=== PATIENT | female | born 1990 | race Caucasian/White ===

== ENCOUNTER 2022-11-07 14:43 | Emergency (ER) | payer OTHER, SELFPAY ==
[2022-11-07 14:54] VITALS: BP 106/72; PULSE 116; RESP 14; TEMP 37.2; O2SAT 97
--- NOTE | 2022-11-07 15:08 | ED.SKABFB ---
HPI - Skin/Abscess/Foreign Bdy General Chief complaint: Wound/Laceration Stated complaint: remove stitches left heel Source: patient and RN notes reviewed History of Present Illness HPI narrative: 32-year-old female presents urgent care for suture removal. Patient states she had 5 sutures placed 10 days ago to her left Achilles tendon area. Patient denies any pain or drainage from the area. Patient has no other complaints or concerns. Some parts of this dictation were generated by voice recognition software and may contain typographical and/or grammatical inaccuracies. Related Data Home Medications Medication Instructions Recorded Confirmed No Home Medications 11/07/22 11/07/22 Allergies Allergy/AdvReac Type Severity Reaction Status Date / Time No Known Allergies Allergy Verified 11/07/22 15:06 Review of Systems Review of Systems: CONSTITUTIONAL: Denies fever, chills, or sweats. EYES: Denies visual changes, redness, or discharge. ENT: Denies otalgia and sore throat CARDIOVASCULAR: Denies chest pain, palpitations, or edema. RESPIRATORY: Denies cough or dyspnea. GASTROINTESTINAL: Denies abdominal pain, nausea, vomiting, or diarrhea. GENITOURINARY: Denies dysuria or hematuria. SKIN: Denies rash or itching. MUSCULOSKELETAL: Denies back pain, joint pain, or myalgia. NEUROLOGIC: Denies headache, numbness, or weakness. PMFSH Comments At the time of my signature, I reviewed and agree with the nursing past medical, surgical, social, and family history. There is no relevant family history pertinent to the patient complaint. Exam Narrative: GENERAL: This is a well-nourished, well-developed patient, in no apparent distress. HEAD: normocephalic, atraumatic. EYES: PERRL. Sclera clear/white. Vision is grossly intact. THROAT: Mucous membranes moist NECK: Neck supple, non-tender without lymphadenopathy, masses or thyromegaly. CARDIOVASCULAR: Regular rate RESPIRATORY: No respiratory distress SKIN: warm, intact with no suspicious lesions or rash, good texture and turgor. 5 sutures removed, wound is approximated with the exception of corner of wound. No drainage or erythema noted. NEURO: awake, alert, and oriented to person, place and time. There were no obvious focal neurologic abnormalities. EXTREMITIES: No clubbing, cyanosis, or edema. No joint tenderness, effusion, or edema noted. Course Course Level of Care: Express Care Visit Vital Signs Vital signs: Vital Signs Temperature 99.0 F 11/07/22 14:54 Pulse Rate 116 H 11/07/22 14:54 Respiratory Rate 14 11/07/22 14:54 Blood Pressure 106/72 11/07/22 14:54 Pulse Oximetry 97 11/07/22 14:54 Oxygen Delivery Room Air 11/07/22 14:54 Temperature 99.0 F 11/07/22 14:54 Pulse Rate 116 H 11/07/22 14:54 Respiratory Rate 14 11/07/22 14:54 Blood Pressure 106/72 11/07/22 14:54 Pulse Oximetry 97 11/07/22 14:54 Oxygen Delivery Room Air 11/07/22 14:54 Reviewed MDM - Skin/Abscess/Foreign Bdy MDM Narrative Medical decision making narrative: Monitor for any signs of infection and be seen by a medical provider if you notice any redness, drainage, or pain to the area. 5 sutures removed successfully without complications. Differential Diagnosis Differential diagnosis: Likely cellulitis and other (Suture removal, wound infection) Critical Care Time Critical Care Time Critical Care Time: No Discharge Plan Discharge Clinical Impression: Visit for suture removal Patient Disposition: Home, Self-Care Condition: Stable Instructions: Acute Wounds (ED) Additional Instructions: Monitor for any signs of infection and be seen by a medical provider if you notice any redness, drainage, or pain to the area. Prescriptions: No Action No Home Medications Follow-up/Referrals: PHYSICIAN NOT ON STAFF,NONSTAFF [Primary Care Provider] - Time of Disposition: 15:12
== END 2022-11-07 15:23 | disposition home or self-care (01) ==
PROVIDERS: Emergency Provider Nurse Practitioner Family
DX: S91.312D Laceration without foreign body, left foot, subsequent encounter (principal); X58.XXXD Exposure to other specified factors, subsequent encounter
CPT/HCPCS: 99211; G0463